=== PATIENT | female | born 1990 | race Caucasian/White ===

== ENCOUNTER 2018-04-28 19:41 | Outpatient (CLI) | END 2018-04-28 23:58 | disposition home or self-care (01) ==

== ENCOUNTER 2018-06-15 21:02 | Inpatient (IN) | payer MEDICAID ==
[~2018-06-15] VITALS: Ht 157.5 cm; Wt 79.0 kg
[~2018-06-15 21:02] MED LIST: PREN1TAB62 PO
[2018-06-15] MEDS ORDERED: MAGNESIUM SULFATE 4 GM/100 ML 100 ML ONE (21:49)
[2018-06-15] MEDS ORDERED: OXYTOCIN 30 UNITS/LR 500 ML IV PRN (22:00)
[2018-06-15] MEDS ORDERED: METHYLERGONOVINE 0.2 MG INJ IM PRN (22:00)
[2018-06-15] MEDS ORDERED: TERBUTALINE 1 MG/ML INJ SC ONE (22:00)
[2018-06-15] MEDS ORDERED: CEFAZOLIN 2 GM/50 ML (PMX) 50 ML IVPB SCH (22:00)
[2018-06-15] MEDS ORDERED: OXYTOCIN 30 UNITS/LR 500 ML IV SCH (22:00)
[2018-06-15] MEDS ORDERED: CARBOPROST 250 MCG INJ IM PRN (22:00)
[2018-06-15] MEDS ORDERED: MISOPROSTOL 200 MCG TAB PR PRN (22:00)
[2018-06-15] MEDS ORDERED: MAGNESIUM SULFATE 20 GM/500 ML 500 ML IV SCH (22:00)
[2018-06-15] MEDS ORDERED: MAGNESIUM SULFATE 4 GM/100 ML 100 ML IVPB ONE (22:00)
[2018-06-15] MEDS: LACTATED RINGER'S 1,000 ML IV SCH (22:08)
[2018-06-15] MEDS ORDERED: BETAMET NA PHOS/AC(6 MG/ML) 2 ML INJ SYG IM SCH (22:30)
[2018-06-16] MEDS: DEXTROSE 5%-LR 1,000 ML IV SCH ×2 (00:07→12:05)
[2018-06-16] MEDS ORDERED: MAGNESIUM SULFATE 4 GM/100 ML 100 ML IV ONE (06:00)
[2018-06-16] MEDS: MAGNESIUM SULFATE 20 GM/500 ML 500 ML IV SCH ×2 (09:01→18:52)
[2018-06-16 09:04] VITALS: Ht 157.5 cm; Wt 79.0 kg
[2018-06-16] MEDS ORDERED: BETAMET NA PHOS/AC(6 MG/ML) 2 ML INJ SYG IM SCH (11:00)
[2018-06-16] MEDS: LACTATED RINGER'S 1,000 ML IV SCH ×2 (11:27→15:53)
--- NOTE | 2018-06-16 16:16 | PERINOTE ---
Date/Time of Note Date/Time of Note DATE: 06/16/18 TIME: 16:07 Assessment/Recommendations Other Assessments IUP 34W4D Maternal bleeding with placental changes suggestive of an abruption History of intolerance of UCs Now status post the second dose of beta methasone Recommendations: If the patient and the fetus remain stable, would continue to observe until 24 hours post the second dose of betamethasone. Could then consider D/C magnesium sulfate: if the patient does not contract would continue observation in the hospital. If the patient does contract, would allow delivery, with for intolerance to labor. Would deliver promptly for any increase in vaginal bleeding, recurrence of heart rate decelerations. OB Subjective Free Text/Dictaton Patient admitted with vaginal bleeding, uterine contractions, with significant heart rate decelerations with contractions. Treated with magnesium sulfate with normalization of FHTs and reduction in the amount of bleeding. HD# 2 IUP @ 34W4D Current Medications Current Medications Lactated Ringer's 1,000 ml @ 125 mls/hr Q8H IV Last administered on 06/16/18at 15:53; Admin Dose 125 MLS/HR; Start 06/15/18 at 21:39 Cefazolin Sodium/ Dextrose 50 ml @ 100 mls/hr ONCE IVPB ; Start 06/15/18 at 22:00 Oxytocin/Lactated Ringer's 500 ml @ 125 mls/hr POST IV ; Start 06/15/18 at 22:00 Oxytocin/Lactated Ringer's 500 ml @ 0 mls/hr ONCE PRN IV VAGINAL BLEEDING; Start 06/15/18 at 22:00 Methylergonovine Maleate (Methergine) 0.2 mg ONCE PRN IM VAGINAL BLEEDING; Start 06/15/18 at 22:00 Carboprost Tromethamine (Hemabate) 250 mcg ONCE PRN IM VAGINAL BLEEDING; Start 06/15/18 at 22:00 Misoprostol (Cytotec) 1,[address] VAGINAL BLEEDING; Start 06/15/18 at 22:00 Dextrose/Lactated Ringer's 1,000 ml @ 125 mls/hr Q8H IV Last administered on 06/16/18at 12:05; Admin Dose 125 MLS/HR; Start 06/15/18 at 23:30 Magnesium Sulfate 500 ml @ 50 mls/hr Q10H IV Last administered on 06/16/18at 09:01; Admin Dose 50 MLS/HR; Start 06/16/18 at 06:30 Past Medical History Medical History: no pertinent history Surgical History: no surgical history 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 ACCOUNTANT History: no pertinent REINSURANCE ACCOUNTANT history Para: 1 : 2 LMP (Females 10-50): Social History Smoker: non-smoker Alcohol: none Drugs: none OB Admission Exam Physical Exam Vitals: BP: 98/53 P: 105 HEENT: WNL Heart: Rhythm Normal Lungs: Clear Abdomen: WNL Heart Rate: 130's Accelerations: Accelerations Present Decelerations: No Decelerations Varibility: Moderate Last 72 hours Lab Results CBC & BMP 06/15/18 22:00 Magnesium Level Test 06/16/18 09:00 06/16/18 14:23 Magnesium Level 4.4 H 5.3 *H Ultrasound Results Ultrasound Comments: US by me: There is an echolucent mass in the lower right placenta without flow, measuring >3cm, suggestive of a hematoma. In addition the placental edge is rounded, suggestive of a subplacental mass of of detatchment of the placental edge. MCA Doppler peak flow velocity is 73 cm/s, less than 1.5 MOM for GA, s uggesting a lower risk for significant anemia. Copies To: CC: LESTER CALDERÓN MD ; JUNIE AUSTIN MD Jun 16, 2018 16:16
--- NOTE | 2018-06-16 16:17 | HP ---
Date/Time of Note Date/Time of Note DATE: 06/16/18 TIME: 16:11 OB - History Hx of Present Free Text/Dictation 27-year-old female 2 para 1 at 34+ weeks gestation admitted complaining of onset of vaginal bleeding and afterwards uterine contractions started at 7 7:30 PM Denies rupture of membrane Patient had another visit at 27 weeks with this complaint of spotting and was DC'd home by on-call physician Last Menstrual Period: October 16, 2017 Estimated Due Date: Jul 23, 2018 : 2 Para: 1 Care: Good Care Ultrasounds: Normal mid trimester US Obstetrical Complications: None Medical Complications: None Past Family/Social History * Past Medical, Surgical, Family and Obstetric Histories reviewed from chart. Blood Type: O+ Rubella: immune RPR/VDRL: Negative GBS Status: Unknown HBsAG: Negative OB Admission Exam Physical Exam HEENT: WNL Heart: Rhythm Normal Lungs: Clear, Equal Abdomen: WNL Extremities: Normal Reflexes: Normal Cervical Dilatation: Fingertip Effacement: 0% Station: -3 Membranes: Intact Heart Rate: 150's Decelerations: Variable Decelerations Varibility: Minimum Contractions on Admission: < 5 Minutes Apart Date/Time Contractions Began: June 15, 2018 at 7 PM Frequency of Contractions: Every 3 4 minutes Duration: Over 50/60 seconds Intensity: Moderate Last 72 hours Lab Results CBC & BMP 06/15/18 22:00 Magnesium Level Test 06/16/18 09:00 06/16/18 14:23 Magnesium Level 4.4 H 5.3 *H OB Assessment/Plan Reason for admission: labor Other Assessment: Persistent uterine contractions Variable deceleration of heart tone 34+ weeks gestation Vaginal bleeding Possible abruption Other plan: Because of variable deceleration decision was tocolyse contractions Patient responded well to tocolysis of uterine contractions and heart tones became stable Perinatology consult will be obtained Steroids were ordered LESTER CALDERÓN MD Jun 16, 2018 16:17
--- NOTE | 2018-06-16 16:21 | PN ---
Date/Time of Note Date/Time of Note DATE: 06/16/18 TIME: 16:18 OB Subjective Subjective Subjective Currently has no complaint of vaginal bleeding and or uterine contractions OB Objective Objective Objective Vital signs are stable heart tones appeared reactive On electronic monitoring minimal or no uterine contractions seen General physical exam is also unchanged No vaginal bleeding was observed Perinatologist was contacted because of observation of possible blood clot between the placenta and uterine body diagnosis of abruption was made by Dr. Reid MCA Doppler study apparently ruled out anemia Recommendation was made by perinatologist to proceed with delivery after 24 hours after last dose of steroids OB Assessment/Plan Reason for admission: labor Other Assessment: Possible abruption as described by perinatologist Other plan: Will follow perinatologist recommendation We will DC magnesium sulfate following day If baby was not tolerating uterine contractions we will proceed with delivery LESTER CALDERÓN MD Jun 16, 2018 16:21
[2018-06-17] MEDS: LACTATED RINGER'S 1,000 ML IV SCH ×3 (05:17→22:40)
[2018-06-17] MEDS: MAGNESIUM SULFATE 20 GM/500 ML 500 ML IV SCH (05:18)
--- NOTE | 2018-06-17 13:59 | NUR ---
RENETTA NOTE: REQUESTED DISABILITY PAPERS This technical writer met with the pt and the FoB, Collins Guillory, : 1990 at bedside in L&D. Pt has been admitted for bleeding. She was receptive and cooperative. Pt stated she is G-2 and P-1. Has a son who will turn 4y/o in July. Pt stated she started PNC in November. Her GA is 35 weeks and EDC is 07/23/18. Pt stated she lives with the FoB. She is employed and works as an cardiovascular tech . FoB is Collins Guillory, : 1990 . He works in construction. Pt stated she anticipates to deliver during this admission. She has a car seat and a crib. She has also ordered a bassinet for the baby. Pt is enrolled in [facility] and plans to breastfeed. Pt denied any P/S issues. Pt requested the State Disability claim form. She stated she has used the form with her older child and knows the process. The requested forms were provided. No other known issues. SW provided supportive intervention and to remain available. Addendum: 06/17/18 at 1427 by RAZ JUNG LCSW Amended: Links added.
--- NOTE | 2018-06-17 19:14 | PN ---
Date/Time of Note Date/Time of Note DATE: 06/17/18 TIME: 19:13 OB Subjective Subjective Subjective Currently does not have complaint of uterine contraction or vaginal bleeding OB Objective Objective Objective Vital signs stable as well as general physical exam heart tones are reactive OB Assessment/Plan Other Assessment: Placental abruption at 34+ week contractions Other plan: Per perinatology consultation magnesium sulfate was DC'd If the patient and the fetus remain stable, would continue to observe until 24 hours post the second dose of betamethasone. Could then consider D/C magnesium sulfate: if the patient does not contract would continue observation in the hospital. If the patient does contract, would allow delivery, with for intolerance to labor. Would deliver promptly for any increase in vaginal bleeding, recurrence of heart rate decelerations. LESTER CALDERÓN MD Jun 17, 2018 19:14
[2018-06-18] MEDS: LACTATED RINGER'S 1,000 ML IV SCH ×4 (06:47→21:20)
[2018-06-18] MEDS: DOCUSATE SODIUM 100 MG CAP PO SCH (09:00)
[2018-06-18] MEDS: FERROUS SULFATE (EC) 325 MG TAB PO SCH (11:56)
[2018-06-18] MEDS: PRENATAL VITAMIN PO SCH (11:56)
--- NOTE | 2018-06-18 17:55 | PN ---
Date/Time of Note Date/Time of Note DATE: 06/18/18 TIME: 17:54 OB Subjective Subjective Subjective Has minimal complaint of uterine contractions No complaint of vaginal bleeding OB Objective Objective Objective Vital signs are stable and general physical exam is unchanged On electronic monitoring uterine contractions were seen every 5 6 minutes heart tones are reactive without deceleration OB Assessment/Plan Other Assessment: 34/35 weeks gestation Possible abruption Other plan: Per perinatologist recommendation will continue to observe patient until patient is LESTER CALDERÓN MD Jun 18, 2018 17:55
[2018-06-19] MEDS: NIFEdipine (XL) 30 MG TAB PO SCH ×4 (00:09→17:59)
[2018-06-19] MEDS: LACTATED RINGER'S 1,000 ML IV SCH ×3 (04:38→22:15)
[2018-06-19] MEDS: FERROUS SULFATE (EC) 325 MG TAB PO SCH (09:01)
[2018-06-19] MEDS: DOCUSATE SODIUM 100 MG CAP PO SCH (09:01)
[2018-06-19] MEDS: PRENATAL VITAMIN PO SCH (09:01)
--- NOTE | 2018-06-19 14:30 | PN ---
Date/Time of Note Date/Time of Note DATE: 06/19/18 TIME: 14:27 OB Subjective Subjective Subjective Patient has occasional feeling of uterine contractions No complaint of bleeding and reports normal movements OB Objective Objective Objective Vital signs as well as general physical exam is unchanged heart tones with the contractions appeared reactive Patient does not have gross vaginal bleeding and or vaginal bleeding OB Assessment/Plan Other Assessment: Possible placental abruption at 35+ weeks Status post steroid resection Other plan: Per perinatologist's recommendationS we will continue in-house observation until a spontaneous labor occurs and or actively deliver at 37 weeks Proceed with delivery for obstetrics indication including well-being and or profuse vaginal bleeding as indicated LESTER CALDERÓN MD Jun 19, 2018 14:30
[2018-06-20] MEDS: NIFEdipine (XL) 30 MG TAB PO SCH ×3 (00:14→12:00)
[2018-06-20] MEDS: LACTATED RINGER'S 1,000 ML IV SCH (05:52)
[2018-06-20] MEDS: FERROUS SULFATE (EC) 325 MG TAB PO SCH (09:01)
[2018-06-20] MEDS: DOCUSATE SODIUM 100 MG CAP PO SCH (09:02)
[2018-06-20] MEDS: PRENATAL VITAMIN PO SCH (09:02)
[2018-06-20] MEDS ORDERED: LACTATED RINGER'S 1,000 ML IV SCH ×2 (12:25→18:19)
[2018-06-20] MEDS ORDERED: OXYTOCIN 30 UNITS/LR 500 ML IV PRN ×2 (12:30→18:30)
[2018-06-20] MEDS ORDERED: LACTATED RINGER'S 1,000 ML IV ONE (12:30)
[2018-06-20] MEDS ORDERED: CEFAZOLIN 2 GM/50 ML (PMX) 50 ML IVPB SCH (12:30)
[2018-06-20] MEDS ORDERED: METHYLERGONOVINE 0.2 MG INJ IM PRN ×2 (12:30→18:30)
[2018-06-20] MEDS ORDERED: MISOPROSTOL 200 MCG TAB PR PRN ×2 (12:30→18:30)
[2018-06-20] MEDS ORDERED: CARBOPROST 250 MCG INJ IM PRN ×2 (12:30→18:30)
[2018-06-20] MEDS ORDERED: OXYTOCIN 30 UNITS/LR 500 ML IV SCH (12:30)
[2018-06-20] MEDS ORDERED: ONDANSETRON 4 MG INJ IV STA (13:40)
[2018-06-20] MEDS ORDERED: METOCLOPRAMIDE 10 MG INJ IV ONE (14:00)
[2018-06-20] MEDS ORDERED: FAMOTIDINE 20 MG INJ IV ONE (14:00)
[2018-06-20] MEDS ORDERED: CITRIC ACID/NA CITRATE 30 ML CUP ONE (14:04)
[2018-06-20] MEDS ORDERED: CITRIC ACID/NA CITRATE 30 ML CUP PO ONE (14:30)
--- NOTE | 2018-06-20 14:37 | PREAC ---
Date/Time of Note Date/Time of Note DATE: 06/20/18 TIME: 14:36 Anesthesia Eval and Record Evaluation Time Pre-Procedure Interview DATE: 06/20/18 TIME: 14:36 Age 27 Sex female NPO: 8 hrs Preoperative diagnosis intrauterine , nonreassuring heart tones Planned procedure primary c section Past Medical History Past Medical History: Includes : : (2), Gestational age: (35+) Surgery & Anesthesia Issues No known issue Meds Anticoagulation: No Beta Viky within 24 hr: No Reason Beta Viky not given: Pt. not on B-Viky Reported Medications Vit-Iron Fumarate-FA ( Vitamin Tablet) 1 Each Tablet, 1 TAB PO DAILY, TAB 07/25/14 Current Medications Prenat Multivit/ Professional Bass Fisher/Iron/Folic Ac () 1 tab DAILY PO Last administered on 06/20/18at 09:02; Admin Dose 1 TAB; Start 06/18/18 at 09:00 Ferrous Sulfate (Ferrous Sulfate (Ec)) 325 mg DAILY PO Last administered on 06/20/18at 09:01; Admin Dose 325 MG; Start 06/18/18 at 09:00 Docusate Sodium (Colace) 100 mg DAILY PO Last administered on 06/20/18at 09:02; Admin Dose 100 MG; Start 06/18/18 at 09:00 Nifedipine (Procardia Xl) 30 mg Q6 PO Last administered on 06/20/18at 05:52; Admin Dose 30 MG; Start 06/19/18 at 00:00 Lactated Ringer's 1,000 ml @ 125 mls/hr Q8H IV ; Start 06/20/18 at 12:25 Cefazolin Sodium/ Dextrose 50 ml @ 100 mls/hr ONCE IVPB ; Start 06/20/18 at 12:30 Oxytocin/Lactated Ringer's 500 ml @ 125 mls/hr POST IV ; Start 06/20/18 at 12:30 Oxytocin/Lactated Ringer's 500 ml @ 0 mls/hr ONCE PRN IV .VAGINAL BLEEDING; Start 06/20/18 at 12:30 Methylergonovine Maleate (Methergine) 0.2 mg ONCE PRN IM .VAGINAL BLEEDING; Start 06/20/18 at 12:30 Carboprost Tromethamine (Hemabate) 250 mcg ONCE PRN IM .VAGINAL BLEEDING; Start 06/20/18 at 12:30 Misoprostol (Cytotec) 1,000 mcg ONCE PRN [place] .VAGINAL BLEEDING; Start 06/20/18 at 12:30 Meds reviewed: Yes Allergies Coded Allergies: No Known Allergy (Unverified , 04/28/18) Allergies Reviewed: Yes Labs/Studies Labs Reviewed: Reviewed by anesthesiologist Result Diagram: 06/20/18 1322 Laboratory Tests 06/20/18 13:22 test: N/A Pre-procedure Exam Airway: Adequate mouth opening, Adequate thyromental dist Mallampati: Mallampati II Teeth: Normal Lung: Normal Heart: Normal ASA Physical Status ASA physical status: 2 Emergency: None Planned Anesthetic Neuraxial: Spinal Planned Pain Management Sub-arachniod narcotics, Parenteral pain med Pre-operative Attestations Prior to commencing anesthesia and surgery, the patient was re-evaluated, there was verification of: *The patient's identity *The results of appropriate recent lab work and preoperative vital signs *The above evaluation not changing prior to induction *Anesthetic plan, risk benefits, alternative and complications discussed with patient/family; questions answered; patient/family understands, accepts and wishes to proceed. CLAUDE CORDERO MD Jun 20, 2018 14:37
[2018-06-20] MEDS ORDERED: morphine SULFATE/PF (10 MG/10 ML) INJ ONE (14:45)
--- NOTE | 2018-06-20 15:06 | CONS ---
DATE OF ADMISSION: 06/15/2018 DATE OF CONSULTATION: 06/20/2018 HISTORY OF PRESENT ILLNESS: I received a call from Dr. Patino today in regard to this patient. The patient has been hospitalized, and she has had a small placental abruption per ultrasound. However, earlier today and I reviewed her strip. She started having late deceleration an a spontane ous decelerations. In addition, he informed me that the patient has been having vaginal bleeding whe n she goes to the restroom. Therefore, I do recommend delivery as soon as possible. Dictated By: YASH AWAD MD ST/NTS Conf#: [id number] DID#: [id number] CC: LESTER CALDERÓN MD;*EndCC*
--- NOTE | 2018-06-20 15:07 | QN ---
Documentation Comment Patient with onset of vaginal bleeding which appears to slight, uterine c ontractions, and variable decelerations of heart tones Perinatologist was contacted recommended delivery via section We will proceed with primary section Patient is well aware of complications of major surgeries including but not li mited to infection and hemorrhage and agreed to undergo section LESTER CALDERÓN MD Jun 20, 2018 15:07
[2018-06-20] MEDS ORDERED: PHENYLephrine (100 MCG/ML) 10ML SYG ONE (15:08)
[2018-06-20] MEDS ORDERED: MIDAZOLAM 1 MG/ML 2 ML INJ ONE (15:28)
[2018-06-20] MEDS ORDERED: ONDANSETRON 4 MG INJ IV PRN ×2 (15:30→16:30)
[2018-06-20] MEDS ORDERED: MEPERIDINE 25 MG INJ IV PRN (15:30)
[2018-06-20] MEDS ORDERED: PROCHLORPERAZINE 10 MG INJ IV PRN (15:30)
[2018-06-20] MEDS ORDERED: FENTAnyl 50 MCG/ML VIAL IV PRN ×3 (15:30)
[2018-06-20] MEDS ORDERED: HYDROmorphONE 1 MG/5 ML IV SYRINGE IV PRN ×3 (15:30)
[2018-06-20] MEDS ORDERED: KETOROLAC 30 MG INJ IV PRN (15:30)
[2018-06-20] MEDS ORDERED: DIPHENHYDRAMINE 50 MG INJ IV PRN ×2 (15:30→16:30)
[2018-06-20] MEDS ORDERED: OXYTOCIN 30 UNITS/LR 500 ML IV ONE (15:31)
[2018-06-20] MEDS ORDERED: KETOROLAC 60 MG INJ IM STA (15:54)
[2018-06-20] MEDS ORDERED: AZITHROMYCIN 500MG/NS (PMX) 250 ML IVPB ONE (16:00)
--- NOTE | 2018-06-20 16:01 | OPR ---
Operative Report Planned Procedure Free Text/Dictation 27-year-old female with a abruption and labor intolerance Procedure date Jun 20, 2018 Procedure(s) Primary section Performed by see signature line Barker Operator: KENNEDY SAHNI Anesthesiologist: CLAUDE CORDERO MD Pre-procedure diagnosis 35 weeks and 2 days gestation labor intolerance Placental abruption with slight bleeding [id number] Anesthesia Type: [id number] spinal Post-Procedure Post-procedure diagnosis Status post primary section Findings Live Baby in OT position Clear amniotic fluid 40 or 50% placental abruption with a retroplacental clots Normal-appearing right and left fallopian tubes and ovaries Estimated Blood Loss: 500 - 600 mls Specimen(s) Placenta Grafts/Implant(s) none Complication(s) none Pt Condition post procedure: stable Disposition: PACU Procedure Description Under satisfactory anaesthesia a Pfannenstiel incision was made two fingerbreadth above and parallel to the symphysis of pubis. Incision was extended laterally to the border of the Recti muscles on either sides. Incision was carried down with sharp and blunt dissection until fascia was reached. Anterior Recti muscle fascia was incised in mid portion and incision extended laterally to the border of skin incision. Fascia was mobilized from muscle superiorly and Recti muscles were from midline using sharp and blunt dissection. Peritoneum was visualized; Avoiding bowel and bladder it was incised . Incision was extended superiorly and inferiorly. Bladder blade was placed. Posterior peritoneum covering the lower segment of the uterus and lower segment of the uterus were incised. Incision was extended laterally to the border of Round Lig. on either sides and baby was delivered from OP. position . Amniotic fluid appeared clear. Cord blood was obtained and cord had 3 vessels . Placenta was delivered spontaneously and appeared intact and complete. Upon delivering the placenta 50% placenta appeared to be detached with retroplacental clots attached to the side of placenta Intrauterine cavity was rubbed with a laparotomy sponge. Uterine incision was closed in 2 layers using running stitches of No1 Monocryl. Hemostasis appeared secure. Ovaries and Fallopian tubes were within normal limits. Announcing needle, lap sponge and instrument count to be correct abdomen was closed in layers as follows: Peritoneum and Recti muscles with running stitches of 2-0 Vicryl. Fascia with running stitch of No 1 PDS. Subcutaneous tissue with running stitches of 2-0 Monocryl and skin was closed using bill. Patient tolerated the procedure well and was transferred to [facility] in good condition. LESTER CALDERÓN MD Jun 20, 2018 16:01
[2018-06-20] MEDS ORDERED: KETOROLAC 30 MG INJ IM STA (16:28)
[2018-06-20] MEDS ORDERED: ZOLPIDEM 5 MG TAB PO PRN (16:30)
[2018-06-20] MEDS ORDERED: HYDROmorphONE 0.5 MG/0.5 ML SYG IV PRN ×2 (16:30)
[2018-06-20] MEDS ORDERED: NALOXONE (0.4 MG/ML) INJ IV PRN (16:30)
--- NOTE | 2018-06-20 16:46 | PAC ---
Date/Time of Note Date/Time of Note DATE: 06/20/18 TIME: 16:45 Post-Anesthesia Notes Post-Anesthesia Note Activity: WNL Respiratory function: WNL Cardiovascular function: WNL Mental status: Baseline Pain reasonably controlled: Yes Hydration appropriate: Yes Nausea/Vomiting absent: Yes Comments BP: 110/69 HR: 64 RR: 15 T: 97.6 SaO2: 100% CLAUDE CORDERO MD Jun 20, 2018 16:46
[2018-06-20] MEDS ORDERED: KETOROLAC 30 MG INJ IM SCH (18:00)
[2018-06-20 18:15] VITALS: BP 131/82; PULSE 63; RESP 20
[2018-06-20] MEDS ORDERED: NA PHOSPHATE/BIPHOS 133 ML ENEMA PR PRN (18:30)
[2018-06-20] MEDS: CLINDAMYCIN 300 MG CAP PO SCH (18:30)
[2018-06-20] MEDS: SENNA/DOCUSATE NA (8.6MG/50MG) TAB PO SCH (21:00)
[2018-06-20] MEDS: IBUPROFEN 800 MG TAB PO SCH (22:00)
[2018-06-20] MEDS: CEFAZOLIN 2 GM/50 ML (PMX) 50 ML IVPB SCH (23:55)
[2018-06-21 00:10] VITALS: BP 120/82; PULSE 74; RESP 20
[2018-06-21] MEDS: CLINDAMYCIN 300 MG CAP PO SCH ×4 (00:50→18:24)
[2018-06-21] MEDS: LACTATED RINGER'S 1,000 ML IV SCH ×3 (04:01→20:00)
[2018-06-21 04:05] VITALS: BP 129/81; PULSE 72; RESP 19
[2018-06-21] MEDS: IBUPROFEN 800 MG TAB PO SCH ×3 (06:00→21:55)
[2018-06-21] MEDS: KETOROLAC 30 MG INJ IV PRN ×2 (06:01→12:46)
--- NOTE | 2018-06-21 06:45 | NUR ---
EOSS: PT STABLE AT THIS TIME. SEE TOOL CRIB CLERK. VS STABLE, PAIN IS WELL CONTROLLED. BONDING WELL WITH BABY. FLAHERTY IS DRAINING CLEAR YELLOW URINE. HOURLY ROUNDING MAINTAINED THROUGHOUT SHIFT.
[2018-06-21] MEDS: CEFAZOLIN 2 GM/50 ML (PMX) 50 ML IVPB SCH ×2 (06:53→14:17)
--- NOTE | 2018-06-21 07:45 | NUR ---
RN RQST Second child, first time BF. Baby was 35.2 GA and 4.14 lb at . . Per MD requested, mom is BF and complementing with formula supplement. Mom has difficulty to keep her baby latched. Mother's breast are Large, soft, veining, large areola, mild fibrous, seems like third spacing, flat nipples and expressible milk supply. Nipple shield provided to easier latch. Established mother's comfort. and assisted with position, alignment holding and deep latch, AT first was difficult then went better. Baby at R breast football hold, latched, then sustained sucking pattern, offered different alternatives, mom verbally agreed. With SNS at breast baby intake 25 cc of formula supplement , then mom expressed breast milk 1.3 cc offered to baby using syringe. Suggested for mom to pump, JESUS set breast pump and educated on use, frequency and cleaning. Shantell technique reviewed and returned demonstration. JESUS called [facility] to process a request for breast pump. Reported to RN RN to follow Baby voided and stooled during consultation. JESUS assisted with diaper changing. Addendum: 06/21/18 at 1012 by RODNEY RANDHAWA Amended: Links added.
[2018-06-21 07:50] VITALS: BP 117/80; PULSE 82; RESP 16
[2018-06-21] MEDS: SENNA/DOCUSATE NA (8.6MG/50MG) TAB PO SCH ×2 (09:19→21:52)
[2018-06-21] MEDS: LANOLIN HPA 1 PKT TOP PRN (09:19)
--- NOTE | 2018-06-21 09:50 | NUR ---
PATIENT REFUSED DULCOLAX SUPPOSITORY. SHE WANTS TO HAVE LATER AT NIGHT.
[2018-06-21] MEDS ORDERED: BISACODYL 10 MG SUPP PR ONE (10:00)
[2018-06-21 12:00] VITALS: BP 125/84; PULSE 97; RESP 16
--- NOTE | 2018-06-21 15:00 | NUR ---
FOLLEY REMOVED. TOLERATED WELL.
[2018-06-21 15:20] VITALS: BP 111/70; PULSE 102; RESP 17
--- NOTE | 2018-06-21 16:26 | PN ---
Date/Time of Note Date/Time of Note DATE: 06/21/18 TIME: 16:25 Assessment/Plan VTE Prophylaxis VTE Prophylaxis Intervention: ambulation Lines/Catheters IV Catheter Type (from Nrsg): Peripheral IV Assessment/Plan Assessment/Plan Status post postop day #1 Advance diet and ambulate Continue to monitor vital signs Repeat CBC next day Subjective 24 Hr Interval Summary No bowel movement but passing flatus Constitutional: no complaints, improved, ambulates, BM, flatus, urine output Pain Control: well controlled Exam/Review of Systems Vital Signs Vitals Vital Signs Date Temp Pulse Resp B/P (MAP) Pulse Ox O2 O2 Flow FiO2 Time Delivery Rate 06/21/18 99.0 102 17 111/70 Room Air 15:20 (84) 06/21/18 100 12:00 Intake and Output 06/20/18 06/20/18 06/21/18 1414:59 22:59 06:59 IntakeIntake Total 2275 ml OutputOutput Total 1100 ml 700 ml BalanceBalance -1100 ml 1575 ml Exam Free Text/Dictation Abdomen is soft with present bowel sounds and abdomen does not seem distended Incision is covered Constitutional: alert, oriented, well developed Psych: no complaints, nl mood/affect Head: normocephalic, atraumatic Eyes: nl conjunctiva, EOMI, nl lids, nl sclera ENMT: nl external ears & nose, nl lips & teeth, nl nasal mucosa & septum, mucosa pink and moist Neck: supple, non-tender Respiratory: clear to auscultation, normal air movement Cardiovascular: regular rate and rhythm, nl pulses Gastrointestinal: soft, nl liver, spleen, non-tender Musculoskeletal: nl extremities to inspection, nl gait and stance Extremities: normal pulses Neurological: CRUSHER AND BLENDER OPERATOR II-XII intact, nl mental status, nl speech, nl strength Skin: nl turgor, rash or lesions Lymph: nl lymph nodes Results Result Diagram: 06/21/18 0727 LESTER CALDERÓN MD Jun 21, 2018 16:26
[2018-06-21] MEDS: HYDROCODONE/APAP (5/325) TAB PO PRN ×2 (16:58→20:40)
[2018-06-21 20:00] VITALS: BP 131/72; PULSE 94; RESP 18
[2018-06-21] MEDS ORDERED: BISACODYL 10 MG SUPP PR SCH (22:00)
[2018-06-22] MEDS: CLINDAMYCIN 300 MG CAP PO SCH ×3 (00:34→11:56)
[2018-06-22 04:00] VITALS: BP 122/80; PULSE 90; RESP 20
[2018-06-22] MEDS: LACTATED RINGER'S 1,000 ML IV SCH (04:00)
--- NOTE | 2018-06-22 05:42 | NUR ---
EOSS PT AMBULATING WELL. FUNDUS FIRM WITH SMALL LOCHIA. PAIN MANAGEMENT EFFECTIVE. CBC WITH DIFF THIS AM. CONDITION STABLE.BONDING WELL WITH BABY.
[2018-06-22] MEDS: IBUPROFEN 800 MG TAB PO SCH ×3 (06:53→21:50)
[2018-06-22] MEDS: SENNA/DOCUSATE NA (8.6MG/50MG) TAB PO SCH ×2 (09:05→21:50)
[2018-06-22 09:19] VITALS: BP 108/71; PULSE 82; RESP 18
[2018-06-22] MEDS: OXYCODONE/ACETAMINOPHEN (5/325) TAB PO PRN ×2 (11:56→19:40)
--- NOTE | 2018-06-22 14:02 | PN ---
Date/Time of Note Date/Time of Note DATE: 06/22/18 TIME: 13:59 Assessment/Plan VTE Prophylaxis VTE Prophylaxis Intervention: ambulation Lines/Catheters IV Catheter Type (from Nrsg): Peripheral IV Assessment/Plan Assessment/Plan Postop day #2 status post Will advance diet and ambulate Continue to monitor vital signs Repeat CBC next day because of elevated white count DC clindamycin and start Cipro Subjective 24 Hr Interval Summary Had small bowel movement Constitutional: no complaints, improved, ambulates, BM, flatus, urine output Pain Control: well controlled Exam/Review of Systems Vital Signs Vitals Vital Signs Date Temp Pulse Resp B/P (MAP) Pulse Ox O2 O2 Flow FiO2 Time Delivery Rate 06/22/18 98.3 82 18 108/71 Room Air 09:19 (83) 06/21/18 100 12:00 Intake and Output 06/21/18 06/21/18 06/22/18 1414:59 22:59 06:59 IntakeIntake Total 1100 ml 125 ml OutputOutput Total 2050 ml 1250 ml BalanceBalance -950 ml -1125 ml Exam Free Text/Dictation Abdomen is soft and not distended bowel sounds are present Incision is healing well without induration and or erythema Constitutional: alert, oriented, well developed Psych: no complaints, nl mood/affect Head: normocephalic, atraumatic Eyes: nl conjunctiva, EOMI, nl lids, nl sclera ENMT: nl external ears & nose, nl lips & teeth, nl nasal mucosa & septum, mucosa pink and moist Neck: supple, non-tender Respiratory: clear to auscultation, normal air movement Cardiovascular: regular rate and rhythm, nl pulses Gastrointestinal: soft, nl liver, spleen, non-tender Musculoskeletal: nl extremities to inspection, nl gait and stance Extremities: normal pulses Neurological: REGISTERED ACCOUNT ADMINISTRATOR II-XII intact, nl mental status, nl speech, nl strength Skin: nl turgor, rash or lesions Lymph: nl lymph nodes Results Result Diagram: 06/22/18 0704 LESTER CALDERÓN MD Jun 22, 2018 14:01
[2018-06-22] MEDS: CIPROFLOXACIN 500 MG TAB PO SCH (15:12)
--- NOTE | 2018-06-22 15:30 | NUR ---
DR COON IN AND SPOKE WITH PATIENT, AWARE OF AM LAB RESULTS, NEW ORDERS
[2018-06-22 16:00] VITALS: BP 119/69; PULSE 93; RESP 18
--- NOTE | 2018-06-22 17:13 | NUR ---
EOSS: VSS, AFEBRILE, LOCHIA SMALL, ABD INCISION INTACT WITH DENIS AND NO DRAINAGE, ABD BINDER ON, AMB FREELY WITH EASE, PASSING GAS AND HAD A BM PER PATIENT, ESTIVEN PO FOOD AND FLUIDS, SEEN BY DR COON, BONDING WELL WITH BABY, SHOWERED, NO DISTRESS NOTED, PUMPING BREASTS BY HAND AND USING ICE PACKS BEFORE AND AFTER TO DECREASE THIRD SPACING-MORE ON RIGHT THAN ON LEFT.
[2018-06-22 21:25] VITALS: BP 124/74; PULSE 87; RESP 18
[2018-06-22] MEDS: LANOLIN HPA 1 PKT TOP PRN ×2 (21:50→21:51)
[2018-06-23 04:29] VITALS: BP 121/68; PULSE 73; RESP 18
[2018-06-23] MEDS: CIPROFLOXACIN 500 MG TAB PO SCH ×2 (06:03→17:39)
[2018-06-23] MEDS: IBUPROFEN 800 MG TAB PO SCH ×2 (06:03→13:47)
--- NOTE | 2018-06-23 06:17 | NUR ---
eoss: stable condition. fundus firm. light lochia. lower abd incision with bill, open to air, clean, dry and intact. voiding without any difficulties. had bm this am. using the breastpump and giving formula to her baby. repeat cbc today. afebrile the whole night.
[2018-06-23 07:45] VITALS: BP 129/72; PULSE 77; RESP 20
[2018-06-23] MEDS ORDERED: MEASLES,MUMPS,RUBELLA VACCINE INJ SC* ONE (09:00)
[2018-06-23] MEDS: SENNA/DOCUSATE NA (8.6MG/50MG) TAB PO SCH (09:00)
[2018-06-23] MEDS ORDERED: DIPHTH/TET/ACEL PERTUSS (ADULT) 0.5 ML VIAL IM* ONE (09:00)
--- NOTE | 2018-06-23 10:44 | NUR ---
Patient c/o headache at this time, states every time she sits up or ambulates she gets a headache. Assisted patient to bed and to lay flat, she then stated she still had the headache but it was less painful. Instructed patient to increase her fluid intake and was given caffein at this time. Pain medication offered and refused. Dr Patino was also notified about patients condition and also anesthesiologist paged at this time.
[2018-06-23] MEDS: LANOLIN HPA 1 PKT TOP PRN (13:47)
--- NOTE | 2018-06-23 14:21 | DS ---
Date/Time of Note Date/Time of Note DATE: 06/23/18 TIME: 14:20 Obstetrical Discharge Record Final Diagnosis Final Diagnosis: delivered Other Final Diagnosis Bleeding placental abruption at 35 weeks Persistent variable deceleration of heart tone Section Section: Primary Primary Indication Persistent variable deceleration of heart tones and abruption Complications Third Trimester Bleeding: Abruptio Condition on Discharge Physical Assessment Last Vitals: See nurse's notes Voiding: Yes Bowel Movement: Yes Breast: Soft, non-tender, Filling Fundus: Firm Abdomen and Incision: Abdomen is soft with present bowel sounds Incision is without induration and or erythema and appears to be healing well Episiotomy: Not applicable Calf Tenderness: No Patient Condition: Good LESTER CALDERÓN MD Jun 23, 2018 14:21
--- NOTE | 2018-06-23 14:22 | DS ---
Date/Time of Note Date/Time of Note DATE: 06/23/18 TIME: 14:21 Discharge Summary Admission/Discharge Info Admit Date/Time Jun 15, 2018 at 21:38 Discharge Date/Time June 23 2018 Discharge Diagnosis Status post Patient Condition: Good Procedures Primary Hx of Present Illness 27-year-old female had primary section Hospital Course Hospital course remained uncomplicated Patient was tolerating diet well and was ambulating without complication Discharge home on the third day with good prognosis and condition Home Meds Reported Medications Vit-Iron Fumarate-FA ( Vitamin Tablet) 1 Each Tablet, 1 TAB PO DAILY, TAB 07/25/14 Follow-up Plan To 3 days in clinic for staple removal Primary Care Provider Care Physician No Primary Time spent on discharge: > 30 minutes Pending Labs Laboratory Tests Test 06/23/18 07:54 White Blood Count 12.6 10^3/ul (4.8-10.8) Red Blood Count 3.62 10^6/ul (4.20-5.40) Hemoglobin 10.3 g/dl (12.0-16.0) Hematocrit 31.1 % (37.0-47.0) Mean Corpuscular Volume 85.9 fl (82.0-101.0) Mean Corpuscular Hemoglobin 28.5 pg (29.0-33.0) Mean Corpuscular Hemoglobin Concent 33.1 g/dl (32.0-37.0) Red Cell Distribution Width 13.2 % (11.5-14.5) Platelet Count 173 10^3/UL (140-415) Mean Platelet Volume 10.2 fl (7.4-10.4) Immature Granulocytes % 0.700 % (0.001-0.429) Neutrophils % 78.1 % (39.0-77.0) Lymphocytes % 14.5 % (15.0-51.0) Monocytes % 4.8 % (0.0-11.0) Eosinophils % 1.7 % (0.0-7.0) Basophils % 0.2 % (0.0-2.0) Nucleated Red Blood Cells % 0.0 /100WBC (0.0-0.0) Immature Granulocytes # 0.090 10^3/ul (0.0-0.031) Neutrophils # 9.9 10^3/ul (1.6-7.5) Lymphocytes # 1.8 10^3/ul (0.8-2.9) Monocytes # 0.6 10^3/ul (0.3-0.9) Eosinophils # 0.2 10^3/ul (0.0-0.5) Basophils # 0.0 10^3/ul (0.0-0.1) Nucleated Red Blood Cells # 0.0 10^3/ul (0.0-0.0) LESTER CALDERÓN MD Jun 23, 2018 14:22
--- NOTE | 2018-06-23 14:25 | NUR ---
Dr Cordero anesthesiologist here to see patient regarding her c/o headache. Blood patch offered and refused a this time.
--- NOTE | 2018-06-23 14:26 | PD.PPDC ---
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
[2018-06-23] MEDS ORDERED: CIPR500T4 PO (14:27)
[2018-06-23] MEDS ORDERED: BACI28.34 TOP (14:27)
[2018-06-23] MEDS ORDERED: IBUP800T48 PO (14:27)
[2018-06-23] MEDS ORDERED: ACET325T33 PO (14:27)
[2018-06-23] MEDS ORDERED: ACETAMINOPHEN 325 MG TAB PO SCH (14:30)
--- NOTE | 2018-06-23 14:45 | NUR ---
Bacitracin applied on open blister at this time as per Dr luciano
--- NOTE | 2018-06-23 16:00 | NUR ---
Dr Patino here to see patient, orders received to discharge patient.
--- NOTE | 2018-06-23 17:30 | NUR ---
Removed every other staple from C/S and applied steri strips as per Dr order. Staple remover kit with steri strips and benzoin given to patient to take with her to the clinic on Friday for follow up appointment. Instructed to apply the bacitracin ointment twice a day on her open blister as per Dr order. Patient verbalized understanding.
--- NOTE | 2018-06-23 18:53 | NUR ---
Discharge home at this time with infant in arms. Taken by wheelchair to discharge area number one.
[2018-06-23] MEDS ORDERED: BACITRACIN 0.5%/ZINC 28.35 GM OINT TOP SCH (21:00)
== END 2018-06-23 18:54 | disposition home or self-care (01) | DRG 786 ==
LOC: OBT 21:02 → L-D 21:02 → OBT 21:38 → L-D 22:46 → PP1 06-18 22:29 → L-D 06-20 13:58 → PP1 06-20 18:18
PROVIDERS: ADMIT Obstetrics & Gynecology; ATTEND Obstetrics & Gynecology
PROC: 10D00Z1 Extraction of Products of Conception, Low, Open Approach (ICD-10-PCS; principal; 2018-06-20 15:00)
DX: O60.14X0 Preterm labor third trimester with preterm delivery third trimester, not applicable or unspecified (principal); O45.93 Premature separation of placenta, unspecified, third trimester; Z3A.35 35 weeks gestation of pregnancy; Z37.0 Single live birth
CPT/HCPCS: 76815; 76818; 80307; 83735; 85025; 85460; 85610; 85730; 86592; 86850; 86900; 86901; 86920; 87340; 88307; 99464; G0463; J0456; J0690; J0702; J1885; J2250; J2274; J2370; J2405; J2590; J2765; J3475; J7120; J7121